=== PATIENT | female | born 1975 | race Caucasian/White ===

== ENCOUNTER 2019-03-27 18:11 | Emergency (ER) | payer OTHER ==
[2019-03-27 18:33] VITALS: BP 132/74
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
== END 2019-03-27 19:23 | disposition home or self-care (01) ==
LOC: ER 18:11
DX: Z76.0 Encounter for issue of repeat prescription (principal); F41.9 Anxiety disorder, unspecified
CPT/HCPCS: 99281

== ENCOUNTER 2019-04-18 20:13 | Emergency (ER) | payer OTHER ==
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
[2019-04-19] MEDS ORDERED: ALPRAZOLAM 0.5 MG TABLET PO ONE (00:03)
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
[2019-04-19 00:34] VITALS: BP 129/92
== END 2019-04-19 00:34 | disposition home or self-care (01) ==
LOC: ER 20:13
DX: Z76.0 Encounter for issue of repeat prescription (principal); F41.9 Anxiety disorder, unspecified; Z79.899 Other long term (current) drug therapy; I10 Essential (primary) hypertension; J45.909 Unspecified asthma, uncomplicated
CPT/HCPCS: 99283